=== PATIENT | female | born 1960 | race Native Hawaiian/Other Pacific Islander ===

== ENCOUNTER 2017-02-27 15:16 | Emergency (ER) | payer OTHER ==
[2017-02-27 15:33] VITALS: RESP 16; TEMP 99.1
--- NOTE | 2017-02-27 16:38 | EDPHY ---
H & P Smoking Status: Current every day smoker Time Seen by Provider: 02/27/17 16:22 HPI/ROS: CHIEF COMPLAINT: Gingival irritation, pain HISTORY OF PRESENT ILLNESS: 56-year-old female history of poor dentition complaining of 3 days of left maxillary gum irritation, swelling and ongoing history of dental cracking and fracturing for which she has been seen by dentist in the past, however this dentist no longer takes her insurance. She has some leftover doxycycline which she took today. Denies: Change in voice, fever, chills, nuchal rigidity PHYSICAL EXAM (Prior to examination, patient consented to physical exam, hands were washed and my usual and customary physical exam procedures followed) 1) GENERAL: Well-developed, well-nourished, alert and oriented. Appears to be in no acute distress. 2) HEAD: Normocephalic 3) HEENT: sclera anicteric . Mild left facial asymmetry . Poor dentition. No trismus no drooling. Left maxillary gingiva is irritated and tender. No signs of abscess. Floor of mouth soft with no signs of Julio's angina 4) LUNGS: Breathing comfortably. 5) SKIN: No facial lesions no vesicles no irritation no rash [6) neck: Supple, no submandibular or submental adenopathy, induration. (Farzaneh Phillips) Constitutional: Initial Vital Signs Temperature (C) 37.3 C 02/27/17 15:31 Heart Rate 92 02/27/17 15:31 Respiratory Rate 16 02/27/17 15:31 Blood Pressure 169/80 H 02/27/17 15:31 O2 Sat (%) 95 02/27/17 15:31 O2 Delivery Mode Room Air Allergies/Adverse Reactions: No Known Allergies Allergy (Unverified 02/15/14 20:23) Home Medications: Medication Instructions Recorded Clobetasol Emollient 0.05% Crm 1 bonnie TD DAILY PRN 02/15/14 Cyclobenzaprine [Flexeril 10 MG 10 mg PO TID PRN 02/15/14 (*)] Diazepam [Valium 10 MG (*)] 10 - 20 mg PO HS 02/15/14 Hydromorphone HCl 4 - 8 mg PO Q6 PRN 02/15/14 QUEtiapine FUMARATE [Seroquel 25 25 mg PO HS 02/15/14 mg (RX)] buPROPion SR [Wellbutrin 150mg SR 300 mg PO DAILY 02/15/14 (*)] morphINE SR [Ms Contin/Oramorph 100 mg PO Q12H 02/15/14 100 mg (*)] predniSONE 5 mg PO DAILY 02/15/14 Acetaminophen/ASA/Caffeine 1 tab PO DAILY PRN 02/16/14 [Excedrin Tablet (*)] Aspirin [Aspirin 325 mg (*)] 325 mg PO HS 02/16/14 Cholecalciferol Vit D3 [Vitamin D3 2,000 units PO DAILY 02/16/14 (*)] buPROPion SR [Wellbutrin 150mg SR 150 mg PO HS 02/16/14 (*)] morphINE IR [morphINE IR 15 mg (*)] 15 mg PO Q4 PRN 02/16/14 Chlorhexidine Gluconate [Perisol] 15 ml MM BID #1 mouthwash 02/27/17 Clindamycin HCl [Clindamycin] 300 mg PO TID 7 Days 02/27/17 Doxycycline Hyclate 02/27/17 MDM/Departure - [facility] ED Course/Re-evaluation: No evidence of Julio's angina, no evidence of facial abscess. Think the patient can be treated on outpatient basis. client business manager has consulted arrange for follow-up at [facility]. Started on oral Peridex and clindamycin. Usual and customary oropharyngeal precautions provided. (Farzaneh Phillips) I did not see this patient while she was in the emergency department. However her care was discussed with the PA while the patient was in the department. I agree with treatment plan and management (Travis Love) - Depart Disposition: Home, Routine, Self-Care Clinical Impression: Gingivitis Condition: Good Instructions: Gingivitis (ED) Additional Instructions: Return to the ER if you have new or worsening symptoms Prescriptions: Chlorhexidine Gluconate [Perisol] 15 ml MM BID #1 mouthwash Clindamycin HCl [Clindamycin] 300 mg PO TID 7 Days
[2017-02-27 17:00] VITALS: BP 152/89; PULSE 69; O2SAT 94
== END 2017-02-27 17:01 | disposition home or self-care (01) ==
DX: K05.10 Chronic gingivitis, plaque induced (principal); Z79.82 Long term (current) use of aspirin

== ENCOUNTER → 2017-03-13 | Outpatient (CLI) | payer OTHER | LOC: BMCIMAGING 14:16 | PROVIDERS: ATTEND Internal Medicine Rheumatology | DX: M47.892 Other spondylosis, cervical region (principal); M43.12 Spondylolisthesis, cervical region; M13.812 Other specified arthritis, left shoulder ==

== ENCOUNTER → 2017-05-11 | Outpatient (CLI) | payer OTHER | LOC: BMCIMAGING 15:16 | PROVIDERS: ATTEND Internal Medicine Rheumatology | DX: M17.11 Unilateral primary osteoarthritis, right knee (principal) ==

== ENCOUNTER → 2017-07-07 | Outpatient (CLI) | payer OTHER | LOC: BMCIMAGING 15:35 | PROVIDERS: ATTEND Internal Medicine Rheumatology | DX: M25.561 Pain in right knee (principal) ==

== ENCOUNTER → 2017-08-17 | Outpatient (CLI) | payer OTHER | LOC: FIMAGING 15:45 | PROVIDERS: ATTEND Internal Medicine Rheumatology | DX: M71.21 Synovial cyst of popliteal space [Baker], right knee (principal) ==

== ENCOUNTER → 2017-09-21 | Outpatient (CLI) | payer OTHER | LOC: FIMAGING 12:22 | PROVIDERS: ATTEND Internal Medicine Rheumatology | DX: M22.41 Chondromalacia patellae, right knee (principal) ==

== ENCOUNTER → 2018-01-08 | Outpatient (CLI) | payer OTHER | LOC: BMCIMAGING 12:00 | PROVIDERS: ATTEND Orthopaedic Surgery Hand Surgery | DX: Z01.818 Encounter for other preprocedural examination (principal); M19.041 Primary osteoarthritis, right hand ==

== ENCOUNTER 2018-03-24 06:19 | Inpatient (IN) | payer OTHER ==
--- NOTE | 2018-03-24 07:00 | EDPHY ---
HPI/HX/ROS/PE/MDM Narrative: CHIEF COMPLAINT: Post-operative pain HPI: The patient is a 57 y/o female with a history of Lupus and chronic pain arriving with her complaining of poorly controlled post-operative pain. She had some sort of fusion on her left hand yesterday morning with Dr. Abebe. She takes daily morphine and Dilaudid for her chronic pain and was discharged with Percocet in addition to her daily medications for the post-operative period. She had significant pain last night and the sensation that the bandage was tight shortly after returning home. She contacted her orthopedist's office several times and spoke with Dr. Abebe twice early this morning. He advised her to loosen the bandage and after [id number] she was advised to come to the ED for evaluation. She denies fever, abdominal pain, vomiting, diarrhea, or other acute symptoms. REVIEW OF SYSTEMS: Aside from elements discussed in the HPI, a comprehensive 10-point review of systems was reviewed and is negative. PMH: Lupus, chronic pain with up to 200mg morphine/12mg Dilaudid daily prescribed, C6/C6 fusion, wrist surgery, left hand surgery 03/23/[address] Abebe. SOCIAL HISTORY: at bedside. Lives in [place]. Disabled. PHYSICAL EXAM: General:Patient is alert, in no acute distress. ENT:Eyes are normal to inspection. ENT inspection normal. Neck: Normal inspection. Full range of motion. Respiratory:No respiratory distress. Cardiovascular: Strong peripheral pulses. Normal cap refill. Skin: Normal color. No rash. Warm and dry. Extremities: Left hand: dressing removed, good cap refill and sensation, no streaking, incisions not visualized. Otherwise: normal appearance. Full range of motion. Neuro: Oriented x3. Normal motor function. Normal sensory function. ED Course: This is a 57 y/o female with Lupus and chronic pain on high doses of daily narcotics who presents less than 24 hour after a left hand surgery complaining of poorly-controlled pain from the surgery. She has spoken with the orthopedist and his staff several times since the surgery and was ultimately advised to come to the ED for evaluation. Bandage and splint removed to check CMS, which is intact. Incisions were not visualized, but there are no surrounding or systemic signs of infection. Plan for IV and pain management and consult with patient's orthopedist, Dr. Abebe. Patient reports her pain is worse after 1mg IV Dilaudid. 0840: Consulted with Dr. Abebe. He agrees with my plan for admission for pain control. Splint will be reapplied. Spoke with hospitalist service. Dr. Cardoso accepts admission. - Data Points Medications Given: Discontinued Medications Hydromorphone HCl (Dilaudid) 1 mg IVP EDNOW ONE Stop: 03/24/18 07:12 Last Admin: 03/24/18 07:25 Dose: 1 mg General Time Seen by Provider: 03/24/18 06:51 Initial Vital Signs: Initial Vital Signs Temperature (C) 36.9 C 03/24/18 06:20 Heart Rate 81 03/24/18 06:20 Respiratory Rate 18 03/24/18 06:20 Blood Pressure 143/80 H 03/24/18 06:20 O2 Sat (%) 93 03/24/18 06:20 Allergies/Adverse Reactions: No Known Allergies Allergy (Verified 03/24/18 06:23) Home Medications: Medication Instructions Recorded Cyclobenzaprine [Flexeril 10 MG 10 mg PO TID PRN 02/15/14 (*)] Diazepam [Valium 10 MG (*)] 10 - 20 mg PO HS 02/15/14 Hydromorphone HCl 4 - 8 mg PO Q6 PRN 02/15/14 morphINE SR [Ms Contin/Oramorph 100 mg PO Q12H 02/15/14 100 mg (*)] Acetaminophen/ASA/Caffeine 1 tab PO DAILY PRN 02/16/14 [Excedrin Tablet (*)] Aspirin [Aspirin 325 mg (*)] 325 mg PO HS 02/16/14 Cholecalciferol Vit D3 [Vitamin D3 2,000 units PO DAILY 02/16/14 (*)] buPROPion SR [Wellbutrin 150mg SR 150 mg PO DAILY@15 02/16/14 (*)] morphINE IR [morphINE IR 15 mg (*)] 15 mg PO Q4 PRN 02/16/14 Diclofenac Sodium 1% [Voltaren Gel 1 bonnie TP QID PRN 03/24/18 (*)] Nortriptyline HCl [Pamelor 25 mg 25 mg PO HS 03/24/18 (*)] buPROPion SR [Wellbutrin 150mg SR 300 mg PO DAILY@10 03/24/18 (*)] predniSONE 2.5 mg PO DAILY 03/24/18 Departure - Departure Disposition: [facility] In[facility] Acute Clinical Impression: Intractable pain Condition: Fair Report Scribed for: Steve Castro Report Scribed by: Cydney Levy Date of Report: 03/24/18 Time of Report: 06:54 Physician Review and Approval Statement: Portions of this note were transcribed by an ED scribe. I personally performed the history, physical exam, and medical decision making; and confirm the accuracy of the information in the transcribed note.
[2018-03-24] MEDS ORDERED: HYDROmorphONE/DILAUDID 2 MG/ML INJ IVP ONE (07:11)
[2018-03-24] MEDS ORDERED: HYDROmorphONE/DILAUDID 6 MG/30 ML PCA IV PRN (11:00)
[2018-03-24] MEDS ORDERED: NALOXONE HCL 0.4 MG/ML INJ IVP PRN (11:00)
[2018-03-24] MEDS ORDERED: DICLOFENAC SODIUM 1% 100 GM GEL TP PRN (11:01)
[2018-03-24] MEDS ORDERED: ONDANSETRON 4 MG/2 ML VIAL IVP PRN (11:02)
[2018-03-24] MEDS ORDERED: ONDANSETRON DISINTEGRATING 4 MG TAB PO PRN (11:02)
[2018-03-24] MEDS ORDERED: ACETAMINOPHEN 325 MG TAB PO PRN (11:02)
[2018-03-24] MEDS ORDERED: morphINE SR 100 MG TAB PO SCH (11:15)
--- NOTE | 2018-03-24 11:39 | GHP ---
[f rep st] HISTORY AND PHYSICAL DATE OF ADMISSION: 03/24/2018 CHIEF COMPLAINT: Pain. HISTORY OF PRESENT ILLNESS: This is a 57-year-old patient with lupus as well as chronic pain on cont inuous narcotics who presents today after having hand surgery. Dr. Abebe performed a fusion on her lef t hand yesterday. He did a nerve block at that time. She began having significant pain overnight, c alled him last night. He recommended taking extra Percocet. Pain worsened overnight where she descr ibes it as 10/10 and severe. After calling again, recommended that she come into the emergency depar tment. She has not had any fevers. She has a little bit of swelling in her hand. She was given Per cocet in addition to her normal pain medicines which include MS Contin 100 mg q.12, morphine IR 15 mg every 4 hours and oral Dilaudid 4-8 mg every 6 hours as needed. PAST MEDICAL/SURGICAL HISTORY: 1. Lupus, followed by Dr. Mclain. 2. Chronic pain, on continuous narcotics. 3. Fibromyalgia. 4. West Nile virus. 5. Hypertension. 6. Hyperlipidemia. 7. Asthma. 8. Appendectomy. 9. Multiple orthopedic surgeries. 10. Cataract surgery. MEDICATIONS: Please see medication reconciliation. ALLERGIES: No known drug allergies. FAMILY HISTORY: No lupus. SOCIAL HISTORY: She smokes 2-10 cigarettes a day. She does not drink. She is . REVIEW OF SYSTEMS: 10-point review of systems is conducted and is negative except per HPI. PHYSICAL EXAM: VITAL SIGNS: Blood pressure 126/78, heart rate 69, respiration rate 16, saturating 9 1% on room air, temperature is 36.9. GENERAL: The patient is a pleasant female who looks somewhat u ncomfortable, moving her legs. HEENT: Normocephalic, atraumatic. CARDIOVASCULAR: Regular rate and rhythm. No murmurs, rubs, or gallops. PULMONARY: Lungs clear to auscultation bilaterally. ABDOME N: Soft, nontender, nondistended. SKIN: No rash. : No Samuel. NEUROLOGIC: Alert and oriented x3. She is moving all extremities. PSYCHIATRIC: Normal mood and affect. EXTREMITIES: Her left quiroz nd is bandaged. There is a small amount of blood on the backside of the bandage. She has a small am ount of sensation in her 1st and 2nd fingers. There is mild swelling. No significant erythema on he r knuckles. Was unable to visualize the incision site. DATA: 1. I discussed this with Dr. Castro. 2. I reviewed her chart, including her last admission for cellulitis. 3. I reviewed her hand x-ray from January 08 of this year. This shows multiple areas of erosive ar thritis in her hand. IMPRESSION AND PLAN: 1. Uncontrolled postoperative pain: Suspect that this is due to her long-term narcotic use. I do n ot see any signs of an infection. I will check a CBC. She has not had any fevers. Dr. Abebe will christiane luate. I will place her on a Dilaudid [employer] at this point, which is a high risk medication needing shirin se monitoring. Will continue her normal medications including high dose MS Contin, immediate release morphine and oral Dilaudid. Will follow her clinical course. 2. Lupus: Will continue her prednisone 2.5 mg daily. 3. Chronic pain on continuous narcotics: As above. 4. Hypertension: Blood pressure is okay. She is not on any antihypertensives at this point. 5. Depression: She is on Wellbutrin. 6. Cor status: Full code. 7. VTE risk: She is admitted as observation. I think she is low to moderate risk overall. If she has a prolonged stay, will consider Lovenox; however, will hold now given her recent surgery. /[id number]/MODL
[2018-03-24] MEDS: HYDROmorphONE/DILAUDID 4 MG TAB PO PRN ×3 (11:48→20:30)
[2018-03-24] MEDS: predniSONE 5 MG TAB PO SCH (11:51)
[2018-03-24] MEDS: HYDROmorphONE/DILAUDID 1 MG/ML INJ IVP PRN ×4 (13:45→23:26)
--- NOTE | 2018-03-24 14:17 | SOAPPROG ---
SOAP Progress Note Assessment/Plan: Assessment: POD#1 s/p L IF/LF PIP fusion, admitted to obs to hospitalist service due to uncontrolled pain after finger block wore off last night. -the patient is on very high dose opioids for chronic pain -dressing changed, both fingers look good Plan: -IV and PO pain ctrl -Prednisone restarted -appreciate the care and assistance of the hospitalist service -I will place new finger splints tmrw. She may f/u with me in 10-14 days after discharge. After her discharge she should wear the splints at all times except hygiene. 03/24/18 14:19 Subjective: Ms. Robin is sitting up in bed. States that the pain in the fingers isn't improved. Her fingertips and the dorsal hand "armstrong." Objective: Vital Signs Temp Pulse Resp BP Pulse Ox 36.7 C 70 16 134/77 H 89 L 03/24/18 11:56 03/24/18 11:56 03/24/18 11:56 03/24/18 11:56 03/24/18 11:56 03/23/18 03/24/18 03/25/18 05:59 05:59 05:59 Intake Total 20 Balance 20 L hand, IF and LF -dressing removed -the incisions are clean with mod bloody drainage -expected postoperative swelling -SILT in IF and LF tips ICD10 Worksheet Patient Problems: Problems Problem Status Onset Intractable pain Acute Cellulitis of face Acute
[2018-03-24] MEDS: buPROPion SR 150 MG TAB PO SCH (15:53)
--- NOTE | 2018-03-24 16:44 | ASMTCMCOM ---
CM Note CM Note Notes: 03/24/2018 Case Management Note Reviewed chart. Pt admitted for pain control after hand surgery fusion was performed 03/[address] Abebe. Pt has significant pain history treated with continuous narcotics. Pt is . Case Management d/c needs are to be determined. There are no PT or OT evals at this time. Case Management to follow. Date Signed: 03/24/2018 04:44 PM Electronically Signed By:Viola Jimenez RN
[2018-03-24] MEDS: morphINE SR 100 MG TAB PO SCH (20:24)
[2018-03-24] MEDS: DIAZEPAM 10 MG TAB PO SCH ×2 (20:24→22:41)
[2018-03-24] MEDS: NORTRIPTYLINE HCL 25 MG CAP PO SCH (20:25)
[2018-03-24] MEDS: ASPIRIN 325 MG TAB PO SCH (20:25)
[2018-03-24] MEDS: CYCLOBENZAPRINE 10 MG TAB PO PRN (20:28)
[2018-03-25] MEDS: HYDROmorphONE/DILAUDID 1 MG/ML INJ IVP PRN ×4 (02:06→22:27)
[2018-03-25] MEDS: HYDROmorphONE/DILAUDID 4 MG TAB PO PRN ×2 (03:59→18:09)
[2018-03-25] MEDS ORDERED: NON-FORMULARY NEW DRUG (Prednisone [Prednisone] 2.5 MG) PO SCH (09:00)
[2018-03-25] MEDS ORDERED: ENOXAPARIN 40 MG/0.4 ML SYR SC SCH (09:00)
[2018-03-25] MEDS: morphINE SR 100 MG TAB PO SCH ×2 (09:41→22:02)
[2018-03-25] MEDS: predniSONE 5 MG TAB PO SCH (10:43)
[2018-03-25] MEDS: CHOLECALCIFEROL VIT D3 1,000 UNITS TAB PO SCH (10:43)
[2018-03-25] MEDS: ACETAMINOPHEN/ASA/CAFFEINE 1 EACH TAB PO PRN (10:44)
[2018-03-25] MEDS: buPROPion SR 150 MG TAB PO SCH ×2 (10:44→15:00)
[2018-03-25] MEDS ORDERED: KETAMINE 500 MG/10 ML VIAL IVP ONE (12:01)
[2018-03-25] MEDS ORDERED: KETAMINE 200 MG/20 ML VIAL IVP ONE ×2 (12:16→12:26)
--- NOTE | 2018-03-25 12:19 | HOSPPROG ---
Hospitalist Progress Note Assessment/Plan: # uncontrolled pain - opioid hyperalgesia after hand surgery d/t chronic high dose narcotics - cont home meds (ms contin 100 bid, morphine ir 15mg q6, dilaudid 8mg PO) - cont dilaudid IV - trial of ketamine IV - discussed with patient and # recent hand surgery - Dr Abebe evaluated yesterday - he will place finger splints today, she should f/u in 10-14 days in his office # chronic pain/fibromyalgia on continuous narcotics # lupus - followed by Dr Mclian - pred 2.5mg daily # depr - wellbutrin Subjective: pain still severe; requiring significant IV dilaudid Objective: Vital Signs Temp Pulse Resp BP Pulse Ox 36.9 C 70 16 129/75 H 91 L 03/25/18 08:00 03/25/18 08:00 03/25/18 08:00 03/25/18 08:00 03/25/18 08:00 03/24/18 03/25/18 03/26/18 05:59 05:59 05:59 Intake Total 920 Balance 920 high risk on IV pain meds - Physical Exam Constitutional: appears nourished, uncomfortable (moving legs in bed) Cardiovascular: regular rate and rhythym, no murmur, rub, or gallop Respiratory: no respiratory distress, no rales or rhonchi, clear to auscultation Gastrointestinal: normoactive bowel sounds, soft, non-tender abdomen, no palpable masses Musculoskeletal: other (L hand wrapped in princess bandage) ICD10 Worksheet Patient Problems: Problems Problem Status Onset Cellulitis of face Acute Intractable pain Acute
[2018-03-25] MEDS ORDERED: KETAMINE 5 MG in SYRINGE 0 ML IVP ONE (12:25)
--- NOTE | 2018-03-25 12:57 | PDMN ---
Medical Necessity Medical necessity: C/M review: est. > 2 MN LOS for eval and TX of acute and persistent uncontrolled pain - opioid hyperalgesia after hand surgery due to chronic high dose narcotics, requiring Hand Surgery consult - Dr. Mark Abebe evaluated 03/24/[address] finger splints 03/25/2018, requiring trial of IV Ketamine, ongoing continue home medications (oral - MS Contin, Morphine IR, Dilaudid), continue IV Dilaudid as needed - patient requiring significant doses of IV Dilaudid, comorbid recent hand surgery, chronic pain / fibromyalgia on continuous narcotics, lupus, depression per 03/25/2018 Hospitalist progress note.
--- NOTE | 2018-03-25 13:48 | SOAPPROG ---
SOAP Progress Note Assessment/Plan: Assessment: POD#2 s/p L IF/LF PIP fusion, admitted to to hospitalist service due to uncontrolled pain postop -the patient is on very high dose opioids for chronic pain -new splints placed today Plan: -IV and PO pain ctrl per hospitalist service -appreciate the care and assistance of the hospitalist service -She may f/u with me in 10-14 days after discharge. Appt already made. After her discharge she should wear the splints at all times except hygiene. 03/24/18 14:19 03/25/18 13:45 Subjective: She was able to get some sleep until she bumped her fingers at night. PO Ketamine was tried today. Still has significant pain in the fingers despite very high dose of opioids. Objective: Vital Signs Temp Pulse Resp BP Pulse Ox 37.2 C 79 16 141/85 H 92 03/25/18 12:00 03/25/18 13:03 03/25/18 13:03 03/25/18 13:03 03/25/18 13:03 03/24/18 03/25/18 03/26/18 05:59 05:59 05:59 Intake Total 920 400 Balance 920 400 L hand -dressing in place, c/d/i -fingertips well perfused -sensation intact to fingertips -new alumifoam splints placed ICD10 Worksheet Patient Problems: Problems Problem Status Onset Intractable pain Acute Cellulitis of face Acute
[2018-03-25] MEDS: NORTRIPTYLINE HCL 25 MG CAP PO SCH (22:02)
[2018-03-25] MEDS: ASPIRIN 325 MG TAB PO SCH (22:02)
[2018-03-25] MEDS: DIAZEPAM 10 MG TAB PO SCH ×2 (22:10→23:25)
[2018-03-25] MEDS: CYCLOBENZAPRINE 10 MG TAB PO PRN (23:25)
[2018-03-26] MEDS: HYDROmorphONE/DILAUDID 4 MG TAB PO PRN ×4 (01:16→23:18)
--- NOTE | 2018-03-26 08:19 | HOSPPROG ---
Hospitalist Progress Note Assessment/Plan: Patient is a 57-year-old who has a history of lupus as well as chronic pain on continuous narcotics. She presented to the emergency room after having hand surgery. She is status post a fusion on her left hand. She was admitted for further care. Today is my 1st encounter with the patient. Chart reviewed. # uncontrolled pain - opioid hyperalgesia after hand surgery d/t chronic high dose narcotics - cont home meds (ms Contin 100 bid, morphine ir 15mg q6, dilaudid 8mg PO) - cont dilaudid IV - trial of ketamine IV yesterday # recent hand surgery - Dr Abebe evaluated yesterday -POD#3 s/p L IF/LF PIP fusion -the patient is on very high dose opioids for chronic pain -new splints placed yesterday -patient will need to further follow up with Dr. Abebe in 10-14 days # chronic pain/fibromyalgia/athritis: on continuous narcotics # lupus - followed by Dr Mclain - pred 2.5mg daily # depr - wellbutrin #Plan: will further evaluate later today to see if pain is well managed, very concerned about any increase in her narcotics due to concern of respiratory depression. Subjective: Tracy wants to go home today, but concerned her pain will escalate. Objective: Vital Signs Temp Pulse Resp BP Pulse Ox 36.9 C 71 16 117/67 94 03/26/18 03:54 03/26/18 03:54 03/26/18 03:54 03/26/18 03:54 03/26/18 03:54 03/25/18 03/26/18 03/27/18 05:59 05:59 05:59 Intake Total 920 750 Balance 920 750 - Physical Exam Constitutional: other (thin) Eyes: PERRL Ears, Nose, Mouth, Throat: hearing normal Cardiovascular: regular rate and rhythym Respiratory: no respiratory distress Skin: warm Musculoskeletal: generalized weakness, other (left hand in splint) Neurologic: AAOx3 Psychiatric: interacting appropriately ICD10 Worksheet Patient Problems: Problems Problem Status Onset Intractable pain Acute Cellulitis of face Acute
[2018-03-26] MEDS: CHOLECALCIFEROL VIT D3 1,000 UNITS TAB PO SCH (09:03)
[2018-03-26] MEDS: morphINE SR 100 MG TAB PO SCH ×2 (09:03→19:43)
[2018-03-26] MEDS: buPROPion SR 150 MG TAB PO SCH ×2 (09:04→15:21)
[2018-03-26] MEDS: CYCLOBENZAPRINE 10 MG TAB PO PRN ×3 (09:05→23:18)
[2018-03-26] MEDS: predniSONE 5 MG TAB PO SCH (09:05)
[2018-03-26] MEDS ORDERED: MAG HYDROX/AL HYDROX/SIMETH 30 ML UDCUP PO PRN (10:46)
[2018-03-26] MEDS: HYDROmorphONE/DILAUDID 1 MG/ML INJ IVP PRN (16:03)
[2018-03-26] MEDS ORDERED: BISACODYL 10 MG SUPP PR PRN (16:39)
[2018-03-26] MEDS ORDERED: POLYETHYLENE GLYCOL 3350 17 GM PKT PO PRN (16:39)
[2018-03-26] MEDS ORDERED: MAGNESIUM HYDROXIDE 30 ML UDCUP PO PRN (16:39)
[2018-03-26] MEDS ORDERED: LACTULOSE 20 GM/30 ML UDCUP PO PRN (16:39)
[2018-03-26] MEDS: ASPIRIN 325 MG TAB PO SCH (19:43)
[2018-03-26] MEDS: NORTRIPTYLINE HCL 25 MG CAP PO SCH (19:43)
[2018-03-26] MEDS: SENNOSIDES/DOCUSATE SODIUM TAB PO SCH (19:44)
[2018-03-26] MEDS: DIAZEPAM 10 MG TAB PO SCH (19:44)
[2018-03-26] MEDS: ACETAMINOPHEN/ASA/CAFFEINE 1 EACH TAB PO PRN (23:18)
--- NOTE | 2018-03-27 08:16 | SOAPPROG ---
SOAP Progress Note Assessment/Plan: Assessment: POD#4 s/p L IF/LF PIP fusion, admitted to to hospitalist service due to uncontrolled pain postop -the patient is on very high dose opioids for chronic pain -sleeping this am Plan: -IV and PO pain ctrl per hospitalist service -appreciate the care and assistance of the hospitalist service -tentative d/c today depending on pain ctrl -She may f/u with me in 10-14 days after discharge. Appt already made. After her discharge she should wear the splints at all times except hygiene. Subjective: Attempted to see patient at 0730 this am. She was sleeping comfortably. I did not wake the patient as she has had sleeping difficulty in the past few days. Objective: Vital Signs Temp Pulse Resp BP Pulse Ox 36.6 C 76 16 120/74 90 L 03/27/18 03:49 03/27/18 03:49 03/27/18 03:49 03/27/18 03:49 03/27/18 03:49 03/26/18 03/27/18 03/28/18 05:59 05:59 05:59 Intake Total 750 800 Balance 750 800 L hand -splints in place ICD10 Worksheet Patient Problems: Problems Problem Status Onset Intractable pain Acute Cellulitis of face Acute
[2018-03-27] MEDS: predniSONE 5 MG TAB PO SCH (08:49)
[2018-03-27] MEDS: CHOLECALCIFEROL VIT D3 1,000 UNITS TAB PO SCH (08:49)
[2018-03-27] MEDS: morphINE SR 100 MG TAB PO SCH (08:49)
[2018-03-27] MEDS: buPROPion SR 150 MG TAB PO SCH (08:50)
[2018-03-27] MEDS: SENNOSIDES/DOCUSATE SODIUM TAB PO SCH (08:51)
[2018-03-27 11:50] VITALS: BP 119/61
--- NOTE | 2018-03-27 12:25 | HOSPPROG ---
Hospitalist Progress Note Assessment/Plan: Patient is a 57-year-old who has a history of lupus as well as chronic pain on continuous narcotics. She presented to the emergency room after having hand surgery. She is status post a fusion on her left hand. She was admitted for further care. # uncontrolled pain - opioid hyperalgesia after hand surgery d/t chronic high dose narcotics - cont home meds (ms Contin 100 bid, morphine ir 15mg q6, dilaudid 8mg PO) - cont dilaudid IV - trial of ketamine IV yesterday # recent hand surgery - Dr Abebe evaluated yesterday -POD#3 s/p L IF/LF PIP fusion -the patient is on very high dose opioids for chronic pain -new splints placed yesterday -patient will need to further follow up with Dr. Abeeb in 10-14 days # chronic pain/fibromyalgia/athritis: narcotic dependence -encouraged her to f/u with Dr Mclain and get a pain specialist # lupus - followed by Dr Mclain - pred 2.5mg daily # depr - wellbutrin #Plan: dc Subjective: Tracy is feeling much better today. Objective: Vital Signs Temp Pulse Resp BP Pulse Ox 37.5 C 82 16 119/61 91 L 03/27/18 11:49 03/27/18 11:49 03/27/18 11:49 03/27/18 11:49 03/27/18 11:49 03/26/18 03/27/18 03/28/18 05:59 05:59 05:59 Intake Total 750 800 450 Balance 750 800 450 - Physical Exam Constitutional: no apparent distress, appears nourished Eyes: PERRL Ears, Nose, Mouth, Throat: hearing normal Cardiovascular: regular rate and rhythym Respiratory: no respiratory distress Skin: warm Musculoskeletal: full muscle strength Neurologic: AAOx3 Psychiatric: interacting appropriately ICD10 Worksheet Patient Problems: Problems Problem Status Onset Intractable pain Acute Cellulitis of face Acute
--- NOTE | 2018-03-27 14:05 | GDS ---
[f rep st] DISCHARGE SUMMARY DISCHARGE DIAGNOSIS: 1. Uncontrolled pain, opioid hyper-analgesia after hand surgery. 2. Recent hand surgery. 3. Chronic pain, fibromyalgia, arthritis with narcotic dependence. 4. Lupus. BRIEF HISTORY: Briefly, the patient is a 57-year-old with a history of lupus as well as chronic pain on continuous narcotics. She presented to the emergency room after having hand surgery. She is status post fusion of her left hand. Her pain was so out of control, she was admitted for further evaluation. HOSPITAL COURSE: 1. Uncontrolled pain. She has opioid hyper-analgesia after hand surgery due to chronic high-dose narcotic use. Her home regimen was continued. She also received intermittent IV Dilaudid. She had a trial dose of ketamine that helped her significantly. 2. Recent hand surgery. She was evaluated by Dr. Abebe. She is postop day #4 status post a PIP fusion. Further follow up with him. 3. Chronic pain, fibromyalgia, arthritis with narcotic dependence. She will follow up with Dr. Mclain and get a pain specialist. 4. Lupus, on prednisone daily. DISCHARGE CONDITION: Stable. Blood pressure is 119/61, respiratory rate 16, pulse is 82, temperature is 37.5 Celsius, O2 saturations on room air 91%. MEDICATIONS AT DISCHARGE: Please see the EMR. I have made no changes to her medications. DISCHARGE INSTRUCTIONS: 1. To follow up with Dr. Abebe and to wear splints at all times unless she is showering. 2. Follow up with Dr. Mclain. /[id number]/MODL MTDD
--- NOTE | 2018-03-27 17:15 | ASMTCMCOM ---
CM Note CM Note Notes: Pt medically stable for d/c with ortho outpatient follow up. No CM d/c needs identified. Date Signed: 03/27/2018 02:04 PM Electronically Signed By:JAYDEN Vasquez
== END 2018-03-27 14:08 | disposition home or self-care (01) | DRG 948 ==
LOC: OBSVTOIN 09:15 → F3N 10:22
PROVIDERS: ADMIT Student in an Organized Health Care Education/Training Program; ATTEND Student in an Organized Health Care Education/Training Program
DX: G89.18 Other acute postprocedural pain (principal); F11.20 Opioid dependence, uncomplicated; R20.8 Other disturbances of skin sensation; G89.29 Other chronic pain; M79.7 Fibromyalgia; M32.9 Systemic lupus erythematosus, unspecified; I10 Essential (primary) hypertension; E78.5 Hyperlipidemia, unspecified; Z98.1 Arthrodesis status
CPT/HCPCS: 96374; G0378; J1170; J7512

== ENCOUNTER → 2018-04-10 | Outpatient (CLI) | payer OTHER | LOC: BMCIMAGING 14:08 | PROVIDERS: ATTEND Orthopaedic Surgery Hand Surgery | DX: Z47.89 Encounter for other orthopedic aftercare (principal); R22.32 Localized swelling, mass and lump, left upper limb; Z98.1 Arthrodesis status ==

== ENCOUNTER → 2018-05-02 | Outpatient (CLI) | payer OTHER | LOC: BMCIMAGING 13:07 | PROVIDERS: ATTEND Orthopaedic Surgery Hand Surgery | DX: Z09 Encounter for follow-up examination after completed treatment for conditions other than malignant neoplasm (principal); Z98.890 Other specified postprocedural states ==

== ENCOUNTER → 2018-05-23 | Outpatient (CLI) | payer OTHER | LOC: BMCIMAGING 13:50 | PROVIDERS: ATTEND Orthopaedic Surgery Hand Surgery | DX: Z09 Encounter for follow-up examination after completed treatment for conditions other than malignant neoplasm (principal); Z98.890 Other specified postprocedural states; M19.042 Primary osteoarthritis, left hand ==

== ENCOUNTER 2018-09-06 14:05 | Inpatient (IN) | payer OTHER ==
--- NOTE | 2018-09-06 14:29 | EDPHY ---
H & P Stated Complaint: fell x 2 yesterday/hit r ribs /sob Time Seen by Provider: 09/06/18 14:23 HPI/ROS: CHIEF COMPLAINT: Cough, rib pain HISTORY OF PRESENT ILLNESS: Patient is a 58-year-old female who states that she fell onto the edge of her bed 2 days ago and hit her right lower rib on the wooden side of the bed. She has had persistent pain there ever since. She has had a mild cough productive of yellow sputum. She did not complain of a fever but has a fever here triage and here in the room. She denies shortness of breath. No abdominal pain. No urinary symptoms. Severity: Severe Modifying factors: Her pain is worse with Twisting or walking REVIEW OF SYSTEMS: Constitutional: denies: chills, fever, recent illness, recent injury EENTM: denies: blurred vision, double vision, nose congestion Respiratory: denies: cough, shortness of breath Cardiac: denies: chest pain, irregular heart rate, lightheadedness, palpitations Gastrointestinal/Abdominal: denies: abdominal pain, diarrhea, nausea, vomiting, blood streaked stools Genitourinary: denies: dysuria, frequency, hematuria, pain Musculoskeletal: denies: joint pain, muscle pain Skin: denies: lesions, rash, jaundice, bruising Neurological: denies: headache, numbness, paresthesia, tingling, dizziness, weakness Hematologic/Lymphatic: denies: blood clots, easy bleeding, easy bruising Immunologic/allergic: denies: HIV/AIDS, transplant 10 systems reviewed and negative except as noted EXAM: GENERAL: Well-appearing, well-nourished and in moderate distress. HEAD: Atraumatic, normocephalic. EYES: Pupils equal round and reactive to light, extraocular movements intact, sclera anicteric, conjunctiva are normal. ENT: TMs normal, nares patent, oropharynx clear without exudates. Moist mucous membranes. NECK: Normal range of motion, supple without lymphadenopathy or JVD. LUNGS: Pain with right lower anterior rib palpation. Pain with movement. HEART: Regular rate and rhythm without murmurs, rubs or gallops. ABDOMEN: Soft, nontender, normoactive bowel sounds. No guarding, no rebound. No masses appreciated. BACK: No CVA tenderness, no spinal tenderness, step-offs or deformities EXTREMITIES: Normal range of motion, no pitting or edema. No clubbing or cyanosis. NEUROLOGICAL: Cranial nerves II through XII grossly intact. Normal speech, normal gait. 5/5 strength, normal movement in all extremities, normal sensation , normal reflexes PSYCH: Normal mood, normal affect. SKIN: Warm, dry, normal turgor, no visible rashes or lesions. Source: Patient, Family, Old records - Personal History Current Tetanus Diphtheria and Acellular Pertussis (TDAP): Yes - Medical/Surgical History Hx Asthma: Yes Hx Chronic Respiratory Disease: No Hx Diabetes: No Hx Cardiac Disease: No Hx Renal Disease: No Hx Cirrhosis: No Hx Alcoholism: No Hx HIV/AIDS: No Hx Splenectomy or Spleen Trauma: No Other PMH: Lupus, RA, Fibromyalgia, [place], appy, ortho surgeries, c6-7 fusion with toyin, ovarian cyst, knee surgery Left knee, cataract surgery, left hand surgery - Family History Significant Family History: No pertinent family hx - Social History Smoking Status: Former smoker Alcohol Use: None Drug Use: None Constitutional: Initial Vital Signs Temperature (C) 38.4 C H 09/06/18 14:13 Heart Rate 90 09/06/18 14:13 Respiratory Rate 18 09/06/18 14:13 Blood Pressure 110/73 09/06/18 14:13 O2 Sat (%) 90 L 09/06/18 14:13 O2 Delivery Mode Nasal Cannula O2 (L/minute) 2 Allergies/Adverse Reactions: No Known Allergies Allergy (Verified 09/06/18 14:10) Home Medications: Medication Instructions Recorded Cyclobenzaprine [Flexeril 10 MG 20 mg PO HS 02/15/14 (*)] Diazepam [Valium 10 MG (*)] 20 mg PO HS 02/15/14 Hydromorphone HCl 4 mg PO Q6 PRN 02/15/14 Acetaminophen/ASA/Caffeine 1 tab PO DAILY PRN 02/16/14 [Excedrin Tablet (*)] Cholecalciferol Vit D3 [Vitamin D3 2,000 units PO DAILY 02/16/14 (*)] buPROPion SR [Wellbutrin 150mg SR 150 mg PO DAILY@15 02/16/14 (*)] morphINE IR [morphINE IR 15 mg (*)] 15 mg PO Q4 PRN 02/16/14 Diclofenac Sodium 1% [Voltaren Gel 1 g TP QID PRN 03/24/18 (*)] Nortriptyline HCl [Pamelor 25 mg 50 mg PO HS 03/24/18 (*)] buPROPion SR [Wellbutrin 150mg SR 300 mg PO DAILY@10 03/24/18 (*)] predniSONE 2.5 mg PO DAILY 03/24/18 Morphine Sulfate [Ms Contin] 60 mg PO TID@00,08,16 09/06/18 Medical Decision Making - Diagnostics Imaging Results: Imaging Impressions Chest X-Ray 09/06/18 14:28 Impression: Right lung pneumonia worst involving the right upper lobe. Imaging: Discussed imaging studies w/ software controls engineer Radiologist (Right middle and lower lobe infiltrates), I viewed and interpreted images myself ED Course/Re-evaluation: The patient is febrile and has high white blood cell count and pneumonia seen on x-ray right middle and lower lobes. She does not have an elevated lactate. She is septic but not severe septic. I will give fluids and IV antibiotics. I discussed the case with Dr. Vaughan who will admit to medical service. Patient also has white cells in her urine planes of mild dysuria. Antibiotic should help with this as well. Differential Diagnosis: Partial list of the Differential diagnosis considered include but were not limited to; pneumonia, rib fracture, pneumothorax and although unlikely based on the history and physical exam, I also considered hemorrhage, effusion, acute coronary disease, PE. Critical Care Time: Critical care time spent by me, Dr. Quach exclusive with this patient was 35 minutes, exclusive of the PA time exclusive of procedures. The organ system that was at risk was pulmonary and I gave medications, fluids, consultations and admission to prevent worsening of the patient's condition - Data Points Laboratory Results: Laboratory Results 09/06/18 14:50 09/06/18 14:50 09/06/18 09/06/18 09/06/18 15:55 14:50 14:50 WBC RBC Hgb Hct MCV MCH MCHC RDW Plt Count MPV Neut % (Auto) Lymph % (Auto) [place] % (Auto) Eos % (Auto) Baso % (Auto) Nucleat RBC Rel Count Absolute Neuts (auto) Absolute Lymphs (auto) Absolute Monos (auto) Absolute Eos (auto) Absolute Basos (auto) Absolute Nucleated RBC Immature Gran % Immature Gran # PT 14.9 SEC SEC (12.0-15.0) INR 1.15 (0.83-1.16) APTT 34.0 SEC SEC (23.0-38.0) VBG Lactic Acid Sodium 133 mEq/L L mEq/L (135-145) Potassium 4.1 mEq/L mEq/L (3.3-5.0) Chloride 99 mEq/L mEq/L (97-110) Carbon Dioxide 24 mEq/l mEq/l (22-31) Anion Gap 10 mEq/L mEq/L (6-14) BUN 10 mg/dL mg/dL (7-23) Creatinine 0.6 mg/dL mg/dL (0.6-1.0) Estimated GFR > 60 Glucose 95 mg/dL mg/dL (70-100) Calcium 8.3 mg/dL L mg/dL (8.5-10.4) Total Bilirubin 1.6 mg/dL H mg/dL (0.1-1.4) Urine Color VIVIANA Urine Appearance HAZY Urine pH 5.0 (5.0-7.5) Ur Specific [place] 1.021 (1.002-1.030) Urine Protein 2+ H (NEGATIVE) Urine Ketones NEGATIVE (NEGATIVE) Urine Blood NEGATIVE (NEGATIVE) Urine Nitrate NEGATIVE (NEGATIVE) Urine Bilirubin POSITIVE H (NEGATIVE) Urine Urobilinogen 4.0 EU H EU (0.2-1.0) Ur Leukocyte Esterase 1+ H (NEGATIVE) Urine RBC 1-3 /hpf /hpf (0-3) Urine WBC 10-15 /hpf H /hpf (0-3) Ur Epithelial Cells TRACE /lpf /lpf (NONE-1+) Urine Mucus 1+ /lpf /lpf (NONE-1+) Urine Glucose NEGATIVE (NEGATIVE) 09/06/18 09/06/18 14:50 14:50 WBC 18.46 10^3/uL H 10^3/uL (3.80-9.50) RBC 3.68 10^6/uL L 10^6/uL (4.18-5.33) Hgb 11.9 g/dL L g/dL (12.6-16.3) Hct 35.2 % L % (38.0-47.0) MCV 95.7 fL fL (81.5-99.8) MCH 32.3 pg pg (27.9-34.1) MCHC 33.8 g/dL g/dL (32.4-36.7) RDW 13.2 % % (11.5-15.2) Plt Count 330 10^3/uL 10^3/uL (150-400) MPV 9.7 fL fL (8.7-11.7) Neut % (Auto) 83.5 % H % (39.3-74.2) Lymph % (Auto) 7.5 % L % (15.0-45.0) [place] % (Auto) 7.9 % % (4.5-13.0) Eos % (Auto) 0.2 % L % (0.6-7.6) Baso % (Auto) 0.3 % % (0.3-1.7) Nucleat RBC Rel Count 0.0 % % (0.0-0.2) Absolute Neuts (auto) 15.42 10^3/uL H 10^3/uL (1.70-6.50) Absolute Lymphs (auto) 1.39 10^3/uL 10^3/uL (1.00-3.00) Absolute Monos (auto) 1.45 10^3/uL H 10^3/uL (0.30-0.80) Absolute Eos (auto) 0.04 10^3/uL 10^3/uL (0.03-0.40) Absolute Basos (auto) 0.05 10^3/uL 10^3/uL (0.02-0.10) Absolute Nucleated RBC 0.00 10^3/uL 10^3/uL (0-0.01) Immature Gran % 0.6 % % (0.0-1.1) Immature Gran # 0.11 10^3/uL H 10^3/uL (0.00-0.10) PT INR APTT VBG Lactic Acid 1.2 mmol/L mmol/L (0.7-2.1) Sodium Potassium Chloride Carbon Dioxide Anion Gap BUN Creatinine Estimated GFR Glucose Calcium Total Bilirubin Urine Color Urine Appearance Urine pH Ur Specific [place] Urine Protein Urine Ketones Urine Blood Urine Nitrate Urine Bilirubin Urine Urobilinogen Ur Leukocyte Esterase Urine RBC Urine WBC Ur Epithelial Cells Urine Mucus Urine Glucose Medications Given: Discontinued Medications Azithromycin 500 mg/ Dextrose 255 mls @ 255 mls/hr IV DAILY ESDA PRN Reason: Protocol Stop: 11/24/18 15:59 Last Admin: 09/06/18 17:03 Dose: 255 mls Ceftriaxone Sodium/Dextrose (Rocephin 1 Gm (Premix)) 50 mls @ 100 mls/hr IV DAILY SEDA PRN Reason: Protocol Stop: 10/06/18 15:59 Last Admin: 09/06/18 16:05 Dose: 50 mls Sodium Chloride (Ns) 1,000 mls @ 0 mls/hr IV ONCE ONE; Wide Open PRN Reason: Protocol Stop: 09/06/18 15:58 Last Admin: 09/06/18 16:10 Dose: 1,000 mls Departure - Departure Disposition: [facility] Inpatient Acute Clinical Impression: Sepsis Pneumonia involving right lung Qualifiers: Pneumonia type: due to unspecified organism Lung location: unspecified part of lung Qualified Code(s): J18.9 - Pneumonia, unspecified organism Condition: Fair
[2018-09-06 15:17] LABS: PLATELET COUNT 330 10^3/uL (150-400)
[2018-09-06 15:23] LABS: INR 1.15 (0.83-1.16); PROTIME(PATIENT) 14.9 SEC (12.0-15.0)
[2018-09-06] MEDS ORDERED: NS 1,000 ML IV ONE (15:57)
[2018-09-06] MEDS ORDERED: AZITHROMYCIN IV 500 MG in D5W 250 ML IV SCH (16:00)
[2018-09-06] MEDS ORDERED: ONDANSETRON 4 MG/2 ML VIAL IVP PRN (17:02)
[2018-09-06] MEDS ORDERED: ONDANSETRON DISINTEGRATING 4 MG TAB PO PRN (17:02)
[2018-09-06] MEDS ORDERED: ALBUTEROL 3 ML DEYVIAL IH PRN (17:04)
--- NOTE | 2018-09-06 17:08 | PDGENHP ---
History and Physical - Chief Complaint rib pain, SOB - History of Present Illness 58 yo female with h/o chronic pain from fibromyalgia and RA on chronic opiates, presents to ED with cough, SOB and rib pain. Her cough started about a week ago and is non-productive. No hemoptysis. She fell out of bed yesterday on the wood frame and hit her right lateral ribs and right buttock. She had a lot of rib pain and right sided chest pain. She also endorses pleuritic chest pain. She was febrile to 38.4 upon arrival. Denies chills or rigors. In the ED, CXR revealed right sided PNA, with elevated wbc's and hypoxemia, requiring 2.5 LPM O2. Blood cultures were drawn. She was given IV ceftriaxone and Azithromycin and is admitted to the hospital for further management. History Information - Allergies/Home Medication List Allergies/Adverse Reactions: No Known Allergies Allergy (Verified 09/06/18 14:10) Home Medications: Cyclobenzaprine [Flexeril 10 MG (*)] 20 mg PO HS 02/15/14 [Last Taken 03/23/18] Diazepam [Valium 10 MG (*)] 20 mg PO HS 02/15/14 [Last Taken 03/23/18] Hydromorphone HCl 4 mg PO Q6 PRN 02/15/14 [Last Taken 09/05/18] Acetaminophen/ASA/Caffeine [Excedrin Tablet (*)] 1 tab PO DAILY PRN 02/16/14 [ Last Taken 02/14/14] Cholecalciferol Vit D3 [Vitamin D3 (*)] 2,000 units PO DAILY 02/16/14 [Last Taken 03/23/18] buPROPion SR [Wellbutrin 150mg SR (*)] 150 mg PO DAILY@15 02/16/14 [Last Taken 03/23/18] morphINE IR [morphINE IR 15 mg (*)] 15 mg PO Q4 PRN 02/16/14 [Last Taken ] Diclofenac Sodium 1% [Voltaren Gel (*)] 1 g TP QID PRN 03/24/18 [Last Taken Unknown] Nortriptyline HCl [Pamelor 25 mg (*)] 50 mg PO HS 03/24/18 [Last Taken 09/05/18] buPROPion SR [Wellbutrin 150mg SR (*)] 300 mg PO DAILY@10 03/24/18 [Last Taken 03/23/18] predniSONE 2.5 mg PO DAILY 03/24/18 [Last Taken 09/06/18] Morphine Sulfate [Ms Contin] 60 mg PO TID@00,08,16 09/06/18 [Last Taken 08:00] I have personally reviewed and updated: family history, medical history, social history, surgical history - Past Medical History Additional medical history: Fibromyalgia. RA. SLE. chronic opioid dependence - Surgical History Additional surgical history: C6-7 fusion. finger fusion - Family History Positive for: diabetes type II - Social History Smoking Status: Former smoker Alcohol Use: None Drug Use: None Additional social history: , at bedside. She is on disability. Review of Systems Review of Systems: ROS: 10pt was reviewed & negative except for what was stated in HPI & below Physical Exam Physical Exam: Temp Pulse Resp BP Pulse Ox 37.6 C 73 16 107/53 L 94 09/06/18 16:58 09/06/18 16:58 09/06/18 16:58 09/06/18 16:58 09/06/18 16:58 O2 (L/minute) 4 Constitutional: no apparent distress Eyes: PERRL Ears, Nose, Mouth, Throat: moist mucous membranes Cardiovascular: regular rate and rhythym, no murmur, rub, or gallop Respiratory: no respiratory distress, inspiratory crackles Gastrointestinal: normoactive bowel sounds, soft, non-tender abdomen Skin: warm Musculoskeletal: full muscle strength Neurologic: AAOx3 Psychiatric: interacting appropriately Lab Data & Imaging Review 09/06/18 14:50 09/06/18 14:50 WBC 18.46 10^3/uL (3.80-9.50) H 09/06/18 14:50 RBC 3.68 10^6/uL (4.18-5.33) L 09/06/18 14:50 Hgb 11.9 g/dL (12.6-16.3) L 09/06/18 14:50 Hct 35.2 % (38.0-47.0) L 09/06/18 14:50 MCV 95.7 fL (81.5-99.8) 09/06/18 14:50 MCH 32.3 pg (27.9-34.1) 09/06/18 14:50 MCHC 33.8 g/dL (32.4-36.7) 09/06/18 14:50 RDW 13.2 % (11.5-15.2) 09/06/18 14:50 Plt Count 330 10^3/uL (150-400) 09/06/18 14:50 MPV 9.7 fL (8.7-11.7) 09/06/18 14:50 Neut % (Auto) 83.5 % (39.3-74.2) H 09/06/18 14:50 Lymph % (Auto) 7.5 % (15.0-45.0) L 09/06/18 14:50 [place] % (Auto) 7.9 % (4.5-13.0) 09/06/18 14:50 Eos % (Auto) 0.2 % (0.6-7.6) L 09/06/18 14:50 Baso % (Auto) 0.3 % (0.3-1.7) 09/06/18 14:50 Nucleat RBC Rel Count 0.0 % (0.0-0.2) 09/06/18 14:50 Absolute Neuts (auto) 15.42 10^3/uL (1.70-6.50) H 09/06/18 14:50 Absolute Lymphs (auto) 1.39 10^3/uL (1.00-3.00) 09/06/18 14:50 Absolute Monos (auto) 1.45 10^3/uL (0.30-0.80) H 09/06/18 14:50 Absolute Eos (auto) 0.04 10^3/uL (0.03-0.40) 09/06/18 14:50 Absolute Basos (auto) 0.05 10^3/uL (0.02-0.10) 09/06/18 14:50 Absolute Nucleated RBC 0.00 10^3/uL (0-0.01) 09/06/18 14:50 Immature Gran % 0.6 % (0.0-1.1) 09/06/18 14:50 Immature Gran # 0.11 10^3/uL (0.00-0.10) H 09/06/18 14:50 PT 14.9 SEC (12.0-15.0) 09/06/18 14:50 INR 1.15 (0.83-1.16) 09/06/18 14:50 APTT 34.0 SEC (23.0-38.0) 09/06/18 14:50 VBG Lactic Acid 1.2 mmol/L (0.7-2.1) 09/06/18 14:50 Sodium 133 mEq/L (135-145) L 09/06/18 14:50 Potassium 4.1 mEq/L (3.3-5.0) 09/06/18 14:50 Chloride 99 mEq/L (97-110) 09/06/18 14:50 Carbon Dioxide 24 mEq/l (22-31) 09/06/18 14:50 Anion Gap 10 mEq/L (6-14) 09/06/18 14:50 BUN 10 mg/dL (7-23) 09/06/18 14:50 Creatinine 0.6 mg/dL (0.6-1.0) 09/06/18 14:50 Estimated GFR > 60 09/06/18 14:50 Glucose 95 mg/dL (70-100) 09/06/18 14:50 Calcium 8.3 mg/dL (8.5-10.4) L 09/06/18 14:50 Total Bilirubin 1.6 mg/dL (0.1-1.4) H 09/06/18 14:50 Urine Color VIVIANA 09/06/18 15:55 Urine Appearance HAZY 09/06/18 15:55 Urine pH 5.0 (5.0-7.5) 09/06/18 15:55 Ur Specific [place] 1.021 (1.002-1.030) 09/06/18 15:55 Urine Protein 2+ (NEGATIVE) H 09/06/18 15:55 Urine Ketones NEGATIVE (NEGATIVE) 09/06/18 15:55 Urine Blood NEGATIVE (NEGATIVE) 09/06/18 15:55 Urine Nitrate NEGATIVE (NEGATIVE) 09/06/18 15:55 Urine Bilirubin POSITIVE (NEGATIVE) H 09/06/18 15:55 Urine Urobilinogen 4.0 EU (0.2-1.0) H 09/06/18 15:55 Ur Leukocyte Esterase 1+ (NEGATIVE) H 09/06/18 15:55 Urine RBC 1-3 /hpf (0-3) 09/06/18 15:55 Urine WBC 10-15 /hpf (0-3) H 09/06/18 15:55 Ur Epithelial Cells TRACE /lpf (NONE-1+) 09/06/18 15:55 Urine Mucus 1+ /lpf (NONE-1+) 09/06/18 15:55 Urine Glucose NEGATIVE (NEGATIVE) 09/06/18 15:55 Visualized and Interpreted Chest x-ray results: Yes Chest X-Ray results: infiltrate Assessment & Plan Assessment: Sepsis 2/2 CAP - (temp, HR, leukocytosis). Suspect this was developing prior to her fall yesterday. -IV Ceftriaxone, Azithro -prn nebs -trend wbc's -BCx's pending AHRF 2/2 above - 2.5 LPM on arrival -wean O2 as able Chronic pain 2/2 fibromyalgia and RA on chronic continuous opiates -cont home opiates (note high risk dosing) -cont home prednisone Hyponatremia - mild, suspect hypovolemic hyponatremia -gentle NS overnight, recheck in am Full code DVT PPLX - mod risk, Lovenox Dispo - inpt, anticipate >48 hrs hospitalization for management of PNA and hypoxemia
[2018-09-06] MEDS ORDERED: DICLOFENAC SODIUM 1% 100 GM GEL TP PRN (17:16)
[2018-09-06] MEDS ORDERED: HYDROmorphONE/DILAUDID 4 MG TAB PO PRN (17:16)
[2018-09-06] MEDS ORDERED: ACETAMINOPHEN/ASA/CAFFEINE 1 EACH TAB PO PRN (17:16)
[2018-09-06] MEDS ORDERED: NS 1,000 ML IV SCH (17:30)
[2018-09-06] MEDS: CYCLOBENZAPRINE 10 MG TAB PO SCH (20:19)
[2018-09-06] MEDS: DIAZEPAM 10 MG TAB PO SCH (20:19)
[2018-09-06] MEDS: NORTRIPTYLINE HCL 25 MG CAP PO SCH (20:19)
[2018-09-07] MEDS: morphINE SR 60 MG TAB PO SCH ×3 (00:58→15:57)
[2018-09-07 05:17] LABS: PLATELET COUNT 320 10^3/uL (150-400)
[2018-09-07] MEDS: predniSONE 5 MG TAB PO SCH (08:59)
[2018-09-07] MEDS: CHOLECALCIFEROL VIT D3 1,000 UNITS TAB PO SCH (09:01)
[2018-09-07] MEDS: ENOXAPARIN 40 MG/0.4 ML SYR SC SCH (09:01)
[2018-09-07] MEDS: AZITHROMYCIN IV 500 MG in NS 250 ML IV SCH (09:34)
--- NOTE | 2018-09-07 09:41 | HOSPPROG ---
Hospitalist Progress Note Assessment/Plan: 58 yo F w RA on pred here w sepsis, RLL pneumonia sepsis: septic physiology has resolved RLL Pneumonia: reasonable to treat as CAP ceftriaxone/azithro chronic pain: continue meds high doses pain meds and pm valium oted proph: lmwh dispo: feels "terrible" remains hypoic will likely change to inpt AHRF: 2/2 airpsce disease Subjective: cxr w RLL infiltrate (interp by me). "fatigued" Objective: Vital Signs Temp Pulse Resp BP Pulse Ox 36.6 C 61 12 95/58 L 90 L 09/07/18 07:20 09/07/18 07:20 09/07/18 07:20 09/07/18 07:20 09/07/18 07:20 Microbiology 09/06/18 19:30 Respiratory Panel (PCR) - Final Nasal, Sinus - Swab No Organism Detected Laboratory Results 09/07/18 04:29 09/07/18 04:29 PT 14.9 SEC (12.0-15.0) 09/06/18 14:50 INR 1.15 (0.83-1.16) 09/06/18 14:50 - Physical Exam Constitutional: no apparent distress, appears nourished Eyes: PERRL, anicteric sclera Ears, Nose, Mouth, Throat: moist mucous membranes, hearing normal Cardiovascular: regular rate and rhythym, no murmur, rub, or gallop Respiratory: no respiratory distress, other (crackles on R side; prolobged expiratory phase) Gastrointestinal: normoactive bowel sounds, soft, non-tender abdomen Genitourinary: no bladder fullness, No downs in urethra Skin: warm, normal color Musculoskeletal: full muscle strength Neurologic: AAOx3, sensation intact bilaterally Psychiatric: interacting appropriately ICD10 Worksheet Patient Problems: Problems Problem Status Onset Pneumonia involving right lung Acute Sepsis Acute Cellulitis of face Acute Intractable pain Acute
[2018-09-07] MEDS: buPROPion SR 150 MG TAB PO SCH ×2 (11:08→15:19)
--- NOTE | 2018-09-07 11:28 | ASMTCMCOM ---
CM Note CM Note Notes: Pt is a 58 y/o female admitted for rib pain and shortness of breath. Pt fell out of bed yesterday and hit her right lateral rib and right buttock. Pt is currently receiving 2.5L of o2. Blood cultures have been drawn. Pt is being given ceftriaxone and azithromycin. Needs are TBD at this time. No therapies ordered. CM to follow. Plan: TBD Date Signed: 09/07/2018 11:27 AM Electronically Signed By:ZORAN Ribeiro
--- NOTE | 2018-09-07 11:41 | PDMN ---
Medical Necessity Medical necessity: Pt meets IP criteria per & MCG [id number]; est los >2 mn for eval/tx of community acquired pneumonia w/suspected sepsis & acute hypoxic respiratory failure s/p fall; requiring further monitoring, IV abx & respiratory supportive care; hx RA on Prednisone; per H&P & order 09/06/18
[2018-09-07] MEDS: DIAZEPAM 10 MG TAB PO SCH (20:19)
[2018-09-07] MEDS: NORTRIPTYLINE HCL 25 MG CAP PO SCH (20:19)
[2018-09-07] MEDS: CYCLOBENZAPRINE 10 MG TAB PO SCH (20:20)
[2018-09-07] MEDS: ACETAMINOPHEN 325 MG TAB PO PRN (23:08)
[2018-09-08] MEDS: morphINE SR 60 MG TAB PO SCH ×3 (01:28→15:48)
[2018-09-08] MEDS: ENOXAPARIN 40 MG/0.4 ML SYR SC SCH (08:04)
[2018-09-08] MEDS: AZITHROMYCIN IV 500 MG in NS 250 ML IV SCH (08:04)
[2018-09-08] MEDS: CHOLECALCIFEROL VIT D3 1,000 UNITS TAB PO SCH (08:04)
[2018-09-08] MEDS: predniSONE 5 MG TAB PO SCH (08:05)
[2018-09-08] MEDS: buPROPion SR 150 MG TAB PO SCH ×2 (10:03→15:48)
--- NOTE | 2018-09-08 10:12 | HOSPPROG ---
Hospitalist Progress Note Assessment/Plan: 58 yo F w RA on pred here w sepsis, RLL pneumonia sepsis: septic physiology has resolved RLL Pneumonia: reasonable to treat as CAP ceftriaxone/azithro add mucinex chronic pain: continue meds high doses pain meds and pm valium noted proph: lmwh dispo: feels "terrible" remains hypoic will likely change to inpt AHRF: 2/2 airspace disease Subjective: still w 02 requirement. dry cough Objective: Vital Signs Temp Pulse Resp BP Pulse Ox 36.6 C 72 16 109/93 H 90 L 09/08/18 07:46 09/08/18 07:46 09/08/18 07:46 09/08/18 07:46 09/08/18 07:46 Microbiology 09/06/18 19:30 Respiratory Panel (PCR) - Final Nasal, Sinus - Swab No Organism Detected Laboratory Results 09/07/18 04:29 09/07/18 04:29 09/07/18 09/08/18 09/09/18 05:59 05:59 05:59 Intake Total 500 Balance 500 PT 14.9 SEC (12.0-15.0) 09/06/18 14:50 INR 1.15 (0.83-1.16) 09/06/18 14:50 - Physical Exam Constitutional: no apparent distress, appears nourished Eyes: PERRL, anicteric sclera Ears, Nose, Mouth, Throat: moist mucous membranes, hearing normal Cardiovascular: regular rate and rhythym, no murmur, rub, or gallop Respiratory: other (crackles w decreased breath sounds on R. no wheeze. good air movement) Gastrointestinal: normoactive bowel sounds, soft, non-tender abdomen Genitourinary: no bladder fullness, No downs in urethra Skin: warm, normal color Musculoskeletal: full muscle strength, no muscle tenderness Neurologic: AAOx3 ICD10 Worksheet Patient Problems: Problems Problem Status Onset Pneumonia involving right lung Acute Sepsis Acute Cellulitis of face Acute Intractable pain Acute
[2018-09-08] MEDS: guaiFENesin 600 MG TAB.ER PO SCH ×2 (12:04→21:32)
[2018-09-08] MEDS: ACETAMINOPHEN 325 MG TAB PO PRN (18:13)
[2018-09-08] MEDS: DIAZEPAM 10 MG TAB PO SCH (21:32)
[2018-09-08] MEDS: CYCLOBENZAPRINE 10 MG TAB PO SCH (21:32)
[2018-09-08] MEDS: NORTRIPTYLINE HCL 25 MG CAP PO SCH (21:32)
[2018-09-09] MEDS: morphINE SR 60 MG TAB PO SCH ×3 (01:55→16:32)
[2018-09-09] MEDS: predniSONE 5 MG TAB PO SCH (08:19)
[2018-09-09] MEDS: guaiFENesin 600 MG TAB.ER PO SCH (08:19)
[2018-09-09] MEDS: CHOLECALCIFEROL VIT D3 1,000 UNITS TAB PO SCH (08:19)
[2018-09-09] MEDS: ENOXAPARIN 40 MG/0.4 ML SYR SC SCH (08:20)
[2018-09-09] MEDS: AZITHROMYCIN IV 500 MG in NS 250 ML IV SCH (08:20)
[2018-09-09] MEDS: ACETAMINOPHEN 325 MG TAB PO PRN (09:32)
[2018-09-09] MEDS: buPROPion SR 150 MG TAB PO SCH ×2 (10:08→14:07)
--- NOTE | 2018-09-09 10:52 | HOSPPROG ---
Hospitalist Progress Note Assessment/Plan: 58 yo F w RA on pred here w sepsis, RLL pneumonia sepsis: septic physiology has resolved RLL Pneumonia: reasonable to treat as CAP ceftriaxone/azithro add mucinex chronic pain: continue meds high doses pain meds and pm valium noted proph: lmwh dispo: feels "terrible" remains hypoic will likely change to inpt AHRF: 2/2 airspace disease likely improving RA challenge today dispo: home today > 30 minutes on dc Subjective: "achy". multiple somatic complaints. 90-91% on RA while resting Objective: Vital Signs Temp Pulse Resp BP Pulse Ox 37.4 C 77 16 115/77 91 L 09/09/18 08:00 09/09/18 08:00 09/09/18 08:00 09/09/18 08:00 09/09/18 08:00 Laboratory Results 09/07/18 04:29 09/07/18 04:29 09/08/18 09/09/18 09/10/18 05:59 05:59 05:59 Intake Total 950 Balance 950 PT 14.9 SEC (12.0-15.0) 09/06/18 14:50 INR 1.15 (0.83-1.16) 09/06/18 14:50 - Physical Exam Constitutional: no apparent distress, appears nourished Eyes: PERRL, anicteric sclera Ears, Nose, Mouth, Throat: moist mucous membranes, hearing normal Cardiovascular: regular rate and rhythym, no murmur, rub, or gallop Respiratory: other (crackle on R, improved ) Gastrointestinal: normoactive bowel sounds, soft, non-tender abdomen Genitourinary: no bladder fullness, No downs in urethra Skin: warm Musculoskeletal: full muscle strength Neurologic: AAOx3 ICD10 Worksheet Patient Problems: Problems Problem Status Onset Pneumonia involving right lung Acute Sepsis Acute Cellulitis of face Acute Intractable pain Acute
--- NOTE | 2018-09-09 11:30 | PDHOMEO2F ---
Home Oxygen Face to Face Home Orders: I certify that a physician or a nurse practitioner or physician's cosmetic sales assistant has had a [id number] encounter with this patient on the date of this order due to the diagnosis listed, which relates to the primary reason the patient requires home oxygen. Alternative treatments have been tried, or considered, and deemed ineffective. It is anticipated that supplemental oxygen will result in improvement with treatment. Home oxygen qualifying diagnosis: pneumonia SpO2 on room air (%): 85 Frequency of home oxygen needed: with activity Home oxygen liters per minute: 2 Home oxygen delivery device: nasal cannula Concentrator: No E-tanks for mobility and back up: Yes If ordering portable O2, is the patient mobile in the home?: Yes I certify that, based on these findings, the home oxygen is medically necessary for this patient for the following length of time. Length of time home oxygen needed: 1 month (follow up w your pcp)
--- NOTE | 2018-09-09 12:28 | ASMTLACE ---
JEREMYE Length of stay for Answers: 2 days current admission Acuity / Level of Answers: Yes Care: Did the patient have an inpatient admission? 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
--- NOTE | 2018-09-09 12:30 | ASMTDCNOTE ---
Case Management Discharge Discharge Order Complete? Answers: Yes Patient to Obtain Answers: Independently Medications Discharge Comments Notes: 09/09/2018 Case Management Note Per RN pt to d/c on oral antibiotics. No further case management d/c needs identified. Case Management d/c poc: home with family support and follow up as directed. Date Signed: 09/09/2018 12:30 PM Electronically Signed By:Viola Jimenez RN
[2018-09-09 15:13] VITALS: BP 130/70
== END 2018-09-09 16:40 | disposition home or self-care (01) | DRG 871 ==
LOC: OBSVTOIN 16:20 → F3E 18:14
PROVIDERS: ADMIT Hospitalist; ATTEND Hospitalist
DX: A41.9 Sepsis, unspecified organism (principal); J18.8 Other pneumonia, unspecified organism; J96.01 Acute respiratory failure with hypoxia; E87.1 Hypo-osmolality and hyponatremia; E86.9 Volume depletion, unspecified; G89.29 Other chronic pain
CPT/HCPCS: 96374; J0456; J0696; J1650; J7512

== ENCOUNTER → 2018-09-19 | Outpatient (CLI) | payer OTHER | LOC: BMCIMAGING 14:15 | PROVIDERS: ATTEND Orthopaedic Surgery Hand Surgery | DX: M19.042 Primary osteoarthritis, left hand (principal); Z98.1 Arthrodesis status ==

== ENCOUNTER → 2018-11-23 | Outpatient (CLI) | payer OTHER | LOC: BMCIMAGING 15:24 | PROVIDERS: ATTEND Internal Medicine Rheumatology | DX: M15.4 Erosive (osteo)arthritis (principal); M20.11 Hallux valgus (acquired), right foot; M19.071 Primary osteoarthritis, right ankle and foot; M19.072 Primary osteoarthritis, left ankle and foot; M77.31 Calcaneal spur, right foot; M77.32 Calcaneal spur, left foot | CPT/HCPCS: 86225-90 ==

== ENCOUNTER 2019-04-22 06:07 | Emergency (ER) | payer OTHER | END 2019-04-22 07:37 | disposition home or self-care (01) ==